=== PATIENT | female | born 1960 | race Caucasian/White ===

== ENCOUNTER 2017-10-06 09:31 | Day surgery (SDC) | payer OTHER ==
[2017-10-06] MEDS ORDERED: MIDAZOLAM 1 MG/ML 2 ML INJ ×2 (10:55)
[2017-10-06] MEDS ORDERED: FENTAnyl 50 MCG/ML VIAL (10:55)
== END 2017-10-06 11:12 | disposition home or self-care (01) ==
LOC: GIL 09:31
DX: Z12.11 Encounter for screening for malignant neoplasm of colon (principal); K64.4 Residual hemorrhoidal skin tags; K64.8 Other hemorrhoids; I10 Essential (primary) hypertension
CPT/HCPCS: 45378